=== PATIENT | female | born 1950 | race Two or more races ===

== ENCOUNTER 2024-08-27 14:57 | Emergency (ER) | payer OTHER ==
[~2024-08-27] VITALS: Ht 139.7 cm; Wt 64.0 kg
[~2024-08-27 14:57] MED LIST: ACETAMINOPHEN325 M1; ATENOLOL25 MG; CLOPIDOGREL BIS75 MG; EXELON3 MG; METFORMIN HCL500 MG; NAMENDA5 MG; PLAVIX75 MG
[2024-08-27] MEDS ORDERED: OxyCODONE HCL/APAP UD (PERCOCET) PO ONE (17:45)
[2024-08-27] MEDS ORDERED: ORPHENADRINE CITRATE 30 MG/ML AMPUL IM ONE (17:45)
[2024-08-27] MEDS ORDERED: DEXAMETHASONE SODIUM PHOSPHATE 4 MG/ML VIAL IM ONE (17:45)
[2024-08-27] MEDS ORDERED: ORPHENADRINE CITRATE 30 MG/ML AMPUL ONE (17:47)
[2024-08-27] MEDS ORDERED: DEXAMETHASONE SODIUM PHOSPHATE 4 MG/ML VIAL ONE (17:47)
== END 2024-08-27 18:48 ==
LOC: ER 15:00
DX: M54.16 Radiculopathy, lumbar region (principal); Z88.6 Allergy status to analgesic agent; Z88.0 Allergy status to penicillin; I25.2 Old myocardial infarction; E11.9 Type 2 diabetes mellitus without complications; Z79.84 Long term (current) use of oral hypoglycemic drugs; I10 Essential (primary) hypertension; K21.9 Gastro-esophageal reflux disease without esophagitis
CPT/HCPCS: 96372; 99282; J1100; J2360